=== PATIENT | male | born 1940 | race Caucasian/White ===

== ENCOUNTER 2017-05-27 20:15 | Inpatient (IN) | payer MEDICARE, OTHER ==
[~2017-05-27] VITALS: Ht 172.7 cm; Wt 110.7 kg
[2017-05-27] MEDS ORDERED: SOD CHLORIDE 0.9% 1,000 ML IV STA (20:21)
[2017-05-27] MEDS ORDERED: CEFTRIAXONE 1 GM/50 ML (PMX) 50 ML IVPB STA (20:21)
[2017-05-27] MEDS ORDERED: KETOROLAC 15 MG INJ IV STA (20:21)
[2017-05-27 20:52] LABS: ABNORMAL IP MESSAGE 1; BASOPHIL # 0.1 10^3/ul (0.0-0.1); BASOPHILS % 0.3 % (0.0-2.0); EOSINOPHILS % 0.1 % (0.0-7.0); HEMATOCRIT 41.5 % (42.0-52.0); HEMOGLOBIN 13.9 g/dl (14.0-18.0); LYMPHOCYTES % 10.1 % (15.0-51.0); MEAN CORPUSCULAR HEMOGLOBIN 29.7 pg (29.0-33.0); MEAN CORPUSCULAR HGB CONC 33.5 g/dl (32.0-37.0); MEAN CORPUSCULAR VOLUME 88.7 fl (82.0-101.0); MEAN PLATELET VOLUME 11.2 fl (7.4-10.4); MONOCYTE # 2.2 10^3/ul (0.3-0.9); MONOCYTES % 11.2 % (0.0-11.0); NEUTROPHILS % 77.6 % (39.0-77.0); PLATELET COUNT 191 10^3/UL (140-415); POSITIVE DIFF @See below; RED BLOOD COUNT 4.68 10^6/ul (4.70-6.10); RED CELL DISTRIBUTION WIDTH 13.7 % (11.5-14.5); WHITE BLOOD COUNT 19.4 10^3/ul (4.8-10.8)
--- NOTE | 2017-05-27 21:09 | ERD ---
ER Documentation Chief Complaint Chief Complaint suprapubic pain/dysuria, hematuria, dx'd UTI @clinic yesterday, 1dose abx HPI This is a 76-year-old male with a PMH of HTN, DM, BPH, a recent diagnosis of urinary tract infection who is presenting with progressive worsening suprapubic pain, pain with urination, blood in his urine, urinary retention, fever, chills and generally feeling unwell. The patient was seen at his clinic yesterday and was diagnosed with urinary tract infection at that time. He has taken 1 dose of Keflex. The patient has had no headache or vision changes. The patient does not endorse neck or back pain. The patient denies lightheadedness or dizziness. The patient has had no chest pain or shortness of breath or trouble breathing. The patient denies nausea or vomiting. The patient denies changes to bowel movements. The patient has had no focal deficits. The patient has had no weakness or numbness or tingling to the face or extremities. ROS All systems reviewed and are negative except as per history of present illness. Medications Home Meds Reported Medications Dutasteride/Tamsulosin HCl (Dutasteride-Tamsulosin 0.5-0.4) 1 Each Cpmp.24hr, 1 EACH PO, CAP 05/28/17 Linaclotide (LINZESS) 290 Mcg Capsule, 290 MCG PO DAILY, #30 CAP 05/28/17 Ergocalciferol (Vitamin D2) (VITAMIN D2) 50,000 Unit Capsule, 75528 UNIT PO, CAP 05/28/17 Zolpidem Tartrate* (Zolpidem Tartrate*) 10 Mg Tablet, 10 MG PO QHS Y for INSOMNIA, #30 TAB 05/28/17 Alprazolam* (Alprazolam*) 1 Mg Tablet, 1 MG PO Q8H Y for ANXIETY, TAB 05/28/17 Lisinopril* (Lisinopril*) 10 Mg Tablet, 10 MG PO DAILY, #30 TAB 05/28/17 Hydrocodone/Acetaminophen ([place] 10-325 Tablet) 1 Each Tablet, 1 EACH PO, TAB 05/28/17 Dutasteride* (Avodart*) 0.5 Mg Capsule, 0.5 MG PO DAILY, CAP 05/28/17 Sitagliptin* (Januvia*) 100 Mg Tablet, 100 MG PO DAILY, #30 TAB 05/28/17 Allergies Allergies: Coded Allergies: No Known Allergy (Unverified , 05/27/17) PMhx/Soc Hx Neurological Disorder: No Hx Respiratory Disorders: No Hx Cardiac Disorders: Yes (HTN) Hx Psychiatric Problems: No Hx Miscellaneous Medical Probl: Yes (DM, BPH) Hx Alcohol Use: No Hx Substance Use: No Hx Tobacco Use: No Smoking Status: Unknown if ever smoked FmHx Family History: diabetes, No coronary disease Physical Exam Vitals Vital Signs Date Time Temp Pulse Resp B/P Pulse Ox O2 Delivery O2 Flow Rate FiO2 05/27/17 23:00 85 27 128/71 97 Room Air 05/27/17 22:00 86 24 132/67 97 Room Air 05/27/17 21:00 89 26 139/72 97 Room Air 05/27/17 20:20 103.1 99 21 162/86 93 Physical Exam Const: No apparent distress, well-developed, well-nourished Head: Normocephalic, Atraumatic Eyes: Normal Conjunctiva. Extraocular movements intact. Pupils equal, round and reactive to light ENT: Normal External Ears, Nose and Mouth. Neck: Full range of motion. No meningismus. Resp: Clear to auscultation bilaterally, No wheezes, rales or rhonchi Cardio: Regular rate and rhythm. No murmurs, rubs or gallops Abd: Suprapubic fullness and tenderness. Soft, non distended. Normal bowel sounds : Blood at the urethral meatus Skin: No petechiae or rashes. Warm to touch Back: No midline tenderness. No CVA tenderness Ext: No cyanosis, or edema Neur: Awake and alert, oriented 4. Cranial nerves intact. No facial droop. Normal strength, sensation and coordination. Psych: Normal Mood and Affect Result Diagram: 05/28/17 0805/28/17 08 Results 24 hrs Laboratory Tests Test 05/27/17 20:35 05/27/17 22:05 05/27/17 22:48 White Blood Count 19.410^3/ul Red Blood Count 4.6810^6/ul Hemoglobin 13.9g/dl Hematocrit 41.5% Mean Corpuscular Volume 88.7fl Mean Corpuscular Hemoglobin 29.7pg Mean Corpuscular Hemoglobin Concent 33.5g/dl Red Cell Distribution Width 13.7% Platelet Count 77020^3/UL Mean Platelet Volume 11.2fl Neutrophils % 77.6% Lymphocytes % 10.1% Monocytes % 11.2% Eosinophils % 0.1% Basophils % 0.3% Nucleated Red Blood Cells % 0.0/100WBC Neutrophils # 15.010^3/ul Lymphocytes # 2.010^3/ul Monocytes # 2.210^3/ul Eosinophils # 0.010^3/ul Basophils # 0.110^3/ul Nucleated Red Blood Cells # 0.010^3/ul Sodium Level 138mmol/L Potassium Level 4.0mmol/L Chloride Level 97mmol/L Carbon Dioxide Level 26mmol/L Anion Gap 19 Blood Urea Nitrogen 14mg/dl Creatinine 0.90mg/dl Glucose Level 170mg/dl Calcium Level 9.2mg/dl Total Bilirubin 0.5mg/dl Direct Bilirubin 0.00mg/dl Indirect Bilirubin 0.5mg/dl Aspartate Amino Transf (AST/SGOT) 20IU/L Alanine Aminotransferase (ALT/SGPT) 54IU/L Alkaline Phosphatase 49IU/L Total Protein 7.8g/dl Albumin 4.4g/dl Globulin 3.40g/dl Albumin/Globulin Ratio 1.29 Lactic Acid Level 1.8mmol/L Urine Color RED Urine Clarity CLOUDY Urine pH 6.0 Urine Specific [place] 1.024 Urine Ketones NEGATIVEmg/dL Urine Nitrite NEGATIVEmg/dL Urine Bilirubin NEGATIVEmg/dL Urine Urobilinogen 1+mg/dL Urine Leukocyte Esterase 3+Mariah/ul Urine Microscopic RBC > 182/HPF Urine Microscopic WBC > 182/HPF Urine Hemoglobin 3+mg/dL Urine Glucose NEGATIVEmg/dL Urine Total Protein 2+mg/dl Current Medications Medications (Trade) Dose Ordered Sig/Robert Route PRN Reason Start Time Stop Time Status Last Admin Dose Admin Sodium Chloride 1,000 ml @ 1,000 mls/hr Q1H STAT IV 05/27/17 20:21 05/27/17 21:20 DC 05/27/17 21:20 Ceftriaxone Sodium (Rocephin) 50 ml @ 100 mls/hr ONCE STAT IVPB 05/27/17 20:21 05/27/17 20:50 DC 05/27/17 21:08 Ketorolac Tromethamine 15 mg 15 mg ONCE STAT IV 05/27/17 20:21 05/27/17 20:24 DC 05/27/17 21:16 Sodium Chloride (NS) 1,000 ml @ 1,000 mls/hr Q1H ONCE IV 05/27/17 23:30 05/28/17 00:29 DC Acetaminophen (Tylenol Tab) 650 mg ONCE ONCE PO 05/27/17 23:30 05/27/17 23:31 DC Procedures/MDM MDM The patient's presentation warrants further investigation. The patient is febrile with an elevated heart rate. I am concerned of sepsis related to UTI. The patient does not look systemically ill. The patient does not have clinical findings of an alternative source. He does have a history of BPH and seems to have issues with urinary obstruction and retention at this time. A Salcedo catheter will be placed. Blood work and urinalysis will be obtained. The patient will get IV fluids and Rocephin for treatment of a urinary infection. LABS The patient's blood work was obtained and reviewed. The patient's CBC shows leukocytosis and left shift. The patient is febrile and does appear systemically ill. I do suspect a systemic infection. The patient is mildly anemic, but this does not require emergent treatment. The patient's platelet count is unremarkable. The patient's CMP shows no signs of metabolic or electrolyte emergencies. The patient has unremarkable renal and hepatic function testing. The patient's urinalysis shows findings consistent with acute cystitis with hematuria. TREATMENT/DISPOSITION The patient has a leukocytosis with a confirmed urinary tract infection. In conjunction with the elevated heart rate and temperature, I do suspect sepsis. At this time, I feel that the patient requires admission for further evaluation and management. The patient will be admitted to [place] in accordance with the patient's insurance. The patient was accepted by Dr. Hines at 23:32PM on May 27, 2017. The patient's blood pressure was elevated at greater than 120/80 while in the emergency department. The patient was otherwise stable with no evidence of hypertensive urgency or emergency or end organ damage. This may be further monitored in the hospital. SEPSIS NOTE Admit MDM: Patient's infectious symptoms have not stabilized and the patient is at risk of rapid decompensation. The patient will be admitted for careful hydration, antibiotic therapy, and infectious source control. Sepsis criteria: Infectious source: UTI End organ damage indicated by: None Sepsis Management: Time of recognition of sepsis: Upon arrival Within 3 hours of recognition: Blood cultures x 2 before broad-spectrum antibiotics: Yes 30 ml/kg NS bolus: The patient was given 2 L of normal saline in the emergency department. He does not have findings consistent with severe sepsis. I do not want to fluid overload him. Initial lactate: 1.8 CRITICAL CARE Critical care time: 35 minutes excluding all billable procedures Emergent fluid management while maintaining close respiratory support. Provision of immediate and broad-spectrum antibiotic therapy. Simultaneous assessment for possible sources in order to direct targeted therapy. Consideration for invasive and chemical support to prevent cardiopulmonary collapse. Disclaimer: Inadvertent spelling and grammatical errors are likely due to EHR/ dictation software use and do not reflect on the overall quality of patient care. Note that the electronic time recorded on this note does not necessarily reflect the actual time of the patient encounter. Departure Diagnosis: Primary Impression: Sepsis Sepsis type: sepsis due to unspecified organism Qualified Code: A41.9 - Sepsis, due to unspecified organism Additional Impressions: UTI (urinary tract infection) Urinary tract infection type: acute cystitis Hematuria presence: with hematuria Qualified Code: N30.01 - Acute cystitis with hematuria Leukocytosis Leukocytosis type: lymphocytosis Qualified Code: D72.820 - Lymphocytosis Fever Fever type: unspecified Qualified Code: R50.9 - Fever, unspecified fever cause Urinary retention WILMER DAVIS MD May 27, 2017 21:09
[2017-05-27 21:14] LABS: ALBUMIN 4.4 g/dl (3.3-4.9); ALBUMIN/GLOBULIN RATIO 1.29; BILIRUBIN,INDIRECT 0.5 mg/dl (0-1.1); BILIRUBIN,TOTAL 0.5 mg/dl (0.2-1.3); CALCIUM 9.2 mg/dl (8.4-10.2); CREATININE 0.9 mg/dl (0.61-1.24); TOTAL PROTEIN 7.8 g/dl (6.1-8.1)
[2017-05-27 23:21] LABS: ADD UMIC YES; UR ASCORBIC ACID NEGATIVE (NEGATIVE); UR BILIRUBIN (Dip) NEGATIVE (NEGATIVE); UR BLOOD (Dip) 3+ mg/dL (NEGATIVE); UR CLARITY CLOUDY (CLEAR); UR COLOR RED (YELLOW); UR GLUCOSE (Dip) NEGATIVE (NEGATIVE); UR KETONES (Dip) NEGATIVE (NEGATIVE); UR LEUKOCYTE ESTERASE (Dip) 3+ Leu/ul (NEGATIVE); UR NITRITE (Dip) NEGATIVE (NEGATIVE); UR RBC > 182 /HPF (0-5); UR SPECIFIC GRAVITY (Dip) 1.024 (1.003-1.030); UR TOTAL PROTEIN (Dip) 2+ mg/dl (NEGATIVE); UR UROBILINOGEN (Dip) 1+ mg/dL (NEGATIVE)
[2017-05-27] MEDS ORDERED: ACETAMINOPHEN 325 MG TAB PO ONE (23:30)
[2017-05-27] MEDS ORDERED: SOD CHLORIDE 0.9% 1,000 ML IV ONE (23:30)
[2017-05-28] VITALS (11 sets, daily range): BP systolic 95–149; BP diastolic 55–94; PULSE 76–89; RESP 17–20; Ht 172.7 cm; Wt 110.7 kg
[2017-05-28] MEDS ORDERED: ONDANSETRON 4 MG INJ IV PRN
[2017-05-28] MEDS ORDERED: ACETAMINOPHEN 325 MG TAB PO PRN
[2017-05-28] MEDS ORDERED: ALPR1TAB7 PO (00:29)
[2017-05-28] MEDS ORDERED: SITA100T8 PO (00:29)
[2017-05-28] MEDS ORDERED: HYDR-902 PO (00:29)
[2017-05-28] MEDS ORDERED: DUTA0.5C PO (00:29)
[2017-05-28] MEDS ORDERED: LISI10TA2 PO (00:29)
[2017-05-28] MEDS ORDERED: ZOLP10TA5 PO (00:43)
[2017-05-28] MEDS ORDERED: LINA290C PO (00:59)
[2017-05-28] MEDS ORDERED: ERGO500037 PO (00:59)
[2017-05-28] MEDS ORDERED: HALOPERIDOL 5 MG INJ IM ONE (01:00)
[2017-05-28] MEDS ORDERED: DUTA1CPM4 PO (01:00)
[2017-05-28] MEDS ORDERED: ZOLPIDEM 5 MG TAB PO PRN (04:30)
[2017-05-28 08:38] LABS: ABNORMAL IP MESSAGE 1; BASOPHIL # 0.1 10^3/ul (0.0-0.1); BASOPHILS % 0.3 % (0.0-2.0); HEMATOCRIT 38.5 % (42.0-52.0); HEMOGLOBIN 13.1 g/dl (14.0-18.0); LYMPHOCYTES # 2.2 10^3/ul (0.8-2.9); LYMPHOCYTES % 11.4 % (15.0-51.0); MEAN CORPUSCULAR HEMOGLOBIN 30.3 pg (29.0-33.0); MEAN CORPUSCULAR VOLUME 88.9 fl (82.0-101.0); MEAN PLATELET VOLUME 11.7 fl (7.4-10.4); MONOCYTE # 1.9 10^3/ul (0.3-0.9); MONOCYTES % 9.6 % (0.0-11.0); NEUTROPHIL # 15.2 10^3/ul (1.6-7.5); NEUTROPHILS % 77.8 % (39.0-77.0); PLATELET COUNT 170 10^3/UL (140-415); POSITIVE DIFF @See below; RED BLOOD COUNT 4.33 10^6/ul (4.70-6.10); RED CELL DISTRIBUTION WIDTH 13.9 % (11.5-14.5); WHITE BLOOD COUNT 19.5 10^3/ul (4.8-10.8)
--- NOTE | 2017-05-28 08:46 | HP ---
Date/Time of Note Date/Time of Note DATE: 05/28/17 TIME: 08:41 Assessment/Plan VTE Prophylaxis VTE Prophylaxis Intervention: SCD's Lines/Catheters IV [facility]from [facility] Saline Lock Urinary Cath still in place: Yes Reason Cath still needed: other (indicate) (Confusion, dementia) Assessment/Plan Assessment/Plan [facility] 76-year-old man diagnosed yesterday as an outpatient with a urinary tract infection, who developed worsening lower abdominal pain, urethritis symptoms, fever, and hematuria. He has apparent pyelonephritis, with sustained elevated WBC (19.5k/ul this morning), fever, and urinary symptoms of infection. * Place under telemetry observation * Continue IV Rocephin * Urine culture pending * Adequate IV and oral hydration * Renal ultrasound * Accuchecks qAC and qHS * HgbA1c with next labs * Full-code * Hold off on heparin for DVT prevention, in light of the hematuria, but we will use SCDs. * Famotidine PO for GI protection * Disposition. Wilfredo Hines MD PhD [phone] HPI/ROS Admit Date/Time Admit Date/Time May 27, 2017 at 23:33 Hx of Present Illness Mr. Cox is a 76-year-old man diagnosed yesterday as an outpatient with a urinary tract infection, who developed worsening lower abdominal pain, urethritis symptoms, fever, and hematuria. He had difficulty relating his story this morning, and there were no family members present. ROS No headache, dyspnea, chest pain or nausea. But also no appetite. 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 They are [place]ians from [place] who lived in [place] and [facility] before moving here in the 70s. Smoking Status: Current every day smoker Exam/Review of Systems Vital Signs Vitals Vital Signs Date Time Temp Pulse Resp B/P Pulse Ox O2 Delivery O2 Flow Rate FiO2 05/28/17 08:35 89 05/28/17 08:21 Nasal Cannula 2.0 05/28/17 07:27 102.8 18 139/75 94 Exam Constitutional: alert, oriented, other (Serious, moderately diaphoretic, and moderately uncomfortable-appearing with any movement) Psych: anxiety, no complaints Head: atraumatic, normocephalic Eyes: EOMI, PERRL, nl conjunctiva, nl sclera ENMT: nl external ears & nose, nl lips & teeth Neck: non-tender, supple, No jvd, No masses, No nuchal rigidity, No thyromegaly Respiratory: clear to auscultation, normal air movement, No congested cough, No crackles/rales, No diminished breath sounds, No intercostal retraction, No labored breathing, No respirations, No tactile fremitus, No wheezing Cardiovascular: nl pulses, regular rate and rhythm, No bruits, No diastolic murmur, No edema, No gallop, No irregular rhythm, No jugular venous distention (JVD), No murmurs/extra sounds, No rub, No systolic murmur Gastrointestinal: nl liver, spleen, non-tender, soft, No ascites, No bowel sounds, No distended, No firm, No hepatomegaly, No mass , No rebound or guarding, No splenomegaly Genitourinary - Male: No CVA tenderness Musculoskeletal: nl extremities to inspection, No joint tenderness, No muscle tone, No muscle weakness, No other, No range of motion, No spine non-tender, No swelling Extremities: normal pulses Labs Result Diagram: 05/28/1780405/27/172034 Medications Medications Current Medications Acetaminophen 650 mg 650 mg Q6H PRN PO PAIN AND OR ELEVATED TEMP; Start at 04:30 Ceftriaxone Sodium (Rocephin) 50 ml @ 100 mls/hr Q24H IVPB ; Start 05/28/17 at 21:00 Alprazolam (Xanax) 1 mg Q8H PRN PO ANXIETY; Start 05/28/17 at 04:30 Dutasteride (Avodart) 0.5 mg DAILY PO ; Start 05/28/17 at 09:00 Lisinopril (Zestril) 10 mg DAILY PO ; Start 05/28/17 at 09:00 Zolpidem Tartrate (Ambien) 10 mg QHS PRN PO INSOMNIA; Start 05/28/17 at 04:30 Miscellaneous Information 290 mcg DAILY PO ; Start 05/28/17 at 09:00; Status UNV Linagliptin (Tradjenta) 5 mg DAILY PO ; Start 05/28/17 at 09:00 AVI HINES M.D. May 28, 2017 08:46
[2017-05-28] MEDS ORDERED: NON-FORMULARY/PATIENT OWN MED (Linaclotide (Linzess) 290 MCG) PO SCH (09:00)
[2017-05-28 09:13] LABS: CALCIUM 8.9 mg/dl (8.4-10.2); CREATININE 0.84 mg/dl (0.61-1.24); POTASSIUM 3.7 mmol/L (3.5-5.1)
[2017-05-28] MEDS: LINAGLIPTIN 5 MG TABLET PO SCH (09:18)
[2017-05-28] MEDS: LISINOPRIL 10 MG TAB PO SCH (09:19)
[2017-05-28] MEDS: DUTASTERIDE 0.5 MG CAP PO SCH (09:19)
[2017-05-28] MEDS: [UNRECOGNIZED DRUG - REMARK] XX SCH ×2 (15:00→23:00)
[2017-05-28] MEDS: CEFTRIAXONE 1 GM/50 ML (PMX) 50 ML IVPB SCH (20:40)
[2017-05-29] VITALS (12 sets, daily range): BP systolic 115–174; BP diastolic 65–83; PULSE 60–92; RESP 16–20
[2017-05-29] MEDS: ACETAMINOPHEN 325 MG TAB PO PRN ×2 (00:20→20:32)
[2017-05-29] MEDS: [UNRECOGNIZED DRUG - REMARK] XX SCH ×3 (06:52→23:00)
[2017-05-29] MEDS: LISINOPRIL 10 MG TAB PO SCH (08:35)
[2017-05-29] MEDS: DUTASTERIDE 0.5 MG CAP PO SCH (08:35)
[2017-05-29] MEDS: LINAGLIPTIN 5 MG TABLET PO SCH (08:36)
[2017-05-29] MEDS: ALPRAZOLAM 1 MG TAB PO PRN ×2 (11:38→21:53)
[2017-05-29 17:05] LABS: BASOPHIL # 0.1 10^3/ul (0.0-0.1); BASOPHILS % 0.3 % (0.0-2.0); EOSINOPHILS % 0.1 % (0.0-7.0); HEMATOCRIT 40.9 % (42.0-52.0); HEMOGLOBIN 13.7 g/dl (14.0-18.0); LYMPHOCYTES # 2.3 10^3/ul (0.8-2.9); LYMPHOCYTES % 11.6 % (15.0-51.0); MEAN CORPUSCULAR HGB CONC 33.5 g/dl (32.0-37.0); MEAN CORPUSCULAR VOLUME 89.7 fl (82.0-101.0); MEAN PLATELET VOLUME 11.4 fl (7.4-10.4); MONOCYTE # 1.3 10^3/ul (0.3-0.9); MONOCYTES % 6.6 % (0.0-11.0); NEUTROPHIL # 15.6 10^3/ul (1.6-7.5); NEUTROPHILS % 80.2 % (39.0-77.0); PLATELET COUNT 165 10^3/UL (140-415); RED BLOOD COUNT 4.56 10^6/ul (4.70-6.10); RED CELL DISTRIBUTION WIDTH 13.9 % (11.5-14.5); WHITE BLOOD COUNT 19.4 10^3/ul (4.8-10.8)
--- NOTE | 2017-05-29 17:17 | PN ---
Date/Time of Note Date/Time of Note DATE: 05/29/17 TIME: 17:11 Assessment/Plan VTE Prophylaxis VTE Prophylaxis Intervention: SCD's Lines/Catheters [facility] Saline Lock Urinary Cath still in place: No Assessment/Plan Assessment/Plan [facility] 1. 76-year-old man who presented yesterday with lower abdominal pain, urethritis symptoms, fever, and hematuria. Diagnosed with pyelonephritis, with sustained elevated WBC elevation (19k/ul again today). No fever now. He appears much better, but was quite confused today with disorientation to person , place and time. Urine culture shows Gram-negative rods. * Salcedo out * Switch admit to Med-Surg inpatient * Continue IV Rocephin * Urine culture pending * Adequate oral hydration * Renal ultrasound performed, but still pending. 2. Type 2 diabetes, on oral agents only, but blood sugars are mildly elevated * Start tonight on Lantus 12u SQ * Accuchecks qAC and qHS * HgbA1c with next labs 3. Hypertension * Continue lisinopril 4. Confusion. Unclear what his baseline may be, but he was convinced tonight that he was on his boat fishing. * Minimize disruption at night, including early-hour vital signs. 5. Disposition * Full-code * Hold off on heparin for DVT prevention, in light of the hematuria, but we will use SCDs. * Famotidine PO for GI protection * Disposition to be discussed with family. Wilfredo Hines MD PhD [phone] Subjective 24 Hr Interval Summary Free Text/Dictation Confused, good eye contact, complaining of minor discomfort in the suprapubic region. But no dyspnea, chest discomfort, headache, or nausea. Exam/Review of Systems Vital Signs Vitals Vital Signs Date Time Temp Pulse Resp B/P Pulse Ox O2 Delivery O2 Flow Rate FiO2 05/29/17 17:06 2.0 05/29/17 16:02 78 05/29/17 16:00 98.8 17 166/72 94 05/29/17 15:56 Nasal Cannula Intake and Output 05/28/17 05/28/17 05/29/17 15:00 23:00 07:00 Intake Total 50 ml 600 ml 800 ml Output Total 1500 ml 900 ml Balance 50 ml -900 ml -100 ml Exam Constitutional: alert, but disoriented. Thought he was on a boat, and couldn' t tell me his name. Not diaphoretic, and overall generally comfortable- appearing. Psych: Mild anxiety, no complaints Eyes: Normal pupils and conjunctiva, nl scleral icterus, moist oral mucosa. Neck: non-tender, supple, no jvd Respiratory: clear to auscultation, normal air movement. Cardiovascular: nl pulses, regular rhythm, normal rate, no murmur. Gastrointestinal: nl liver, spleen, non-tender, soft, normal bowel sounds. Genitourinary - Male: No CVA tenderness Musculoskeletal: nl extremities to inspection, no joint tenderness. No swelling. Symmetric pulses Results Result Diagram: 05/29/17 1645 05/28/17 0805 Results 24 hrs Laboratory Tests Test 05/28/17 17:19 05/29/17 08:08 05/29/17 12:26 05/29/17 16:45 Bedside Glucose 206 219 259 H White Blood Count 19.4 H Red Blood Count 4.56 L Hemoglobin 13.7 L Hematocrit 40.9 L Mean Corpuscular Volume 89.7 Mean Corpuscular Hemoglobin 30.0 Mean Corpuscular Hemoglobin Concent 33.5 Red Cell Distribution Width 13.9 Platelet Count 165 Mean Platelet Volume 11.4 H Neutrophils % 80.2 H Lymphocytes % 11.6 L Monocytes % 6.6 Eosinophils % 0.1 Basophils % 0.3 Nucleated Red Blood Cells % 0.0 Neutrophils # 15.6 H Lymphocytes # 2.3 Monocytes # 1.3 H Eosinophils # 0.0 Basophils # 0.1 Nucleated Red Blood Cells # 0.0 Medications Medications Current Medications Acetaminophen 650 mg 650 mg Q6H PRN PO PAIN AND OR ELEVATED TEMP Last administered on 05/29/17 00:20; Admin Dose 650 MG; Start 05/28/17 at 04:30 Ceftriaxone Sodium (Rocephin) 50 ml @ 100 mls/hr Q24H IVPB Last administered on 05/28/17 20:40; Admin Dose 100 MLS/HR; Start 05/28/17 at 21:00 Alprazolam (Xanax) 1 mg Q8H PRN PO ANXIETY Last administered on 05/29/17 11: 38; Admin Dose 1 MG; Start 05/28/17 at 04:30 Dutasteride (Avodart) 0.5 mg DAILY PO Last administered on 05/29/17 08:35; Admin Dose 0.5 MG; Start 05/28/17 at 09:00 Lisinopril (Zestril) 10 mg DAILY PO Last administered on 05/29/17 08:35; Admin Dose 10 MG; Start 05/28/17 at 09:00 Zolpidem Tartrate (Ambien) 10 mg QHS PRN PO INSOMNIA; Start 05/28/17 at 04:30 Miscellaneous Information 290 mcg DAILY PO ; Start 05/28/17 at 09:00; Status UNV Linagliptin (Tradjenta) 5 mg DAILY PO Last administered on 05/29/17 08:36; Admin Dose 5 MG; Start 05/28/17 at 09:00 Miscellaneous Information (*Order Clarification Bulletin) LINZESS... NON FORMULARY...PLEASE CONSIDER AN OR... Q8H XX ; Start 05/28/17 at 15:00 AVI HINES M.D. May 29, 2017 17:17
[2017-05-29 17:26] LABS: CALCIUM 9.8 mg/dl (8.4-10.2); CREATININE 0.72 mg/dl (0.61-1.24); POTASSIUM 3.9 mmol/L (3.5-5.1)
[2017-05-29] MEDS: CEFTRIAXONE 1 GM/50 ML (PMX) 50 ML IVPB SCH (21:26)
[2017-05-29] MEDS: INSULIN GLARGINE [LANtus] 3 ML PEN SC SCH (23:30)
[2017-05-29] MEDS ORDERED: GLUCOSE GEL 15 GRAM TUBE BUCCAL PRN (23:30)
[2017-05-29] MEDS ORDERED: GLUCAGON 1 MG INJ IM PRN (23:30)
[2017-05-29] MEDS ORDERED: DEXTROSE 50% 50 ML SYRINGE IV PRN ×2 (23:30)
[2017-05-29] MEDS ORDERED: GLUCOSE GEL 15 GRAM TUBE PO PRN ×2 (23:30)
[2017-05-30] VITALS (8 sets, daily range): BP systolic 107–150; BP diastolic 59–86; PULSE 47–72; RESP 21–22
[2017-05-30] MEDS: INSULIN GLARGINE [LANtus] 3 ML PEN SC SCH (00:05)
[2017-05-30] MEDS: ACETAMINOPHEN 325 MG TAB PO PRN (05:39)
[2017-05-30 06:54] LABS: BASOPHIL # 0.1 10^3/ul (0.0-0.1); BASOPHILS % 0.4 % (0.0-2.0); EOSINOPHILS # 0.1 10^3/ul (0.0-0.5); EOSINOPHILS % 0.9 % (0.0-7.0); HEMOGLOBIN 12.5 g/dl (14.0-18.0); LYMPHOCYTES # 1.9 10^3/ul (0.8-2.9); LYMPHOCYTES % 13.6 % (15.0-51.0); MEAN CORPUSCULAR HGB CONC 33.8 g/dl (32.0-37.0); MEAN CORPUSCULAR VOLUME 88.9 fl (82.0-101.0); MEAN PLATELET VOLUME 11.4 fl (7.4-10.4); MONOCYTE # 1.4 10^3/ul (0.3-0.9); MONOCYTES % 10.1 % (0.0-11.0); NEUTROPHIL # 10.5 10^3/ul (1.6-7.5); NEUTROPHILS % 74.2 % (39.0-77.0); PLATELET COUNT 192 10^3/UL (140-415); RED BLOOD COUNT 4.16 10^6/ul (4.70-6.10); RED CELL DISTRIBUTION WIDTH 13.8 % (11.5-14.5); WHITE BLOOD COUNT 14.1 10^3/ul (4.8-10.8)
[2017-05-30] MEDS: [UNRECOGNIZED DRUG - REMARK] XX SCH (07:00)
[2017-05-30] MEDS ORDERED: ACCU-CHEK XX SCH (07:25)
[2017-05-30 08:06] LABS: ALBUMIN 3.6 g/dl (3.3-4.9); ALBUMIN/GLOBULIN RATIO 0.87; BILIRUBIN,INDIRECT 0.4 mg/dl (0-1.1); BILIRUBIN,TOTAL 0.4 mg/dl (0.2-1.3); CALCIUM 9.5 mg/dl (8.4-10.2); CREATININE 0.73 mg/dl (0.61-1.24); POTASSIUM 3.6 mmol/L (3.5-5.1); TOTAL PROTEIN 7.7 g/dl (6.1-8.1)
[2017-05-30] MEDS: LINAGLIPTIN 5 MG TABLET PO SCH (08:08)
[2017-05-30] MEDS: DUTASTERIDE 0.5 MG CAP PO SCH (08:08)
[2017-05-30] MEDS: LISINOPRIL 10 MG TAB PO SCH (08:09)
[2017-05-30 08:13] LABS: CHOL/HDL RATIO 8.8 RATIO
[2017-05-30 08:21] LABS: THYROID STIMULATING HORMONE 1.99 MIU/L (0.465-4.680)
[2017-05-30] MEDS: ALPRAZOLAM 1 MG TAB PO PRN (10:17)
--- NOTE | 2017-05-30 12:08 | PN ---
Date/Time of Note Date/Time of Note DATE: 05/30/17 TIME: 12:01 Assessment/Plan VTE Prophylaxis VTE Prophylaxis Intervention: ambulation, SCD's Lines/Catheters IV C[facility]ter Type [facility]from [facility] Urinary Cath still in place: No Assessment/Plan Assessment/Plan 76-year-old man: 1. Cystitis, urine culture positive for E. coli, pansensitive, did receive Rocephin, will be switched to Levaquin 750 p.o. daily for 5 more days. Patient remains afebrile, mental status has been on and off confused, however better today, discharge planning home with home health. Renal ultrasound performed, report still pending. Discussed current clinical status and treatment plan with son, he is very insistent on having the patient home and agrees with plan of care, patient will be discharged with home health RN check. 2. Type 2 diabetes, on oral agents only, but blood sugars are mildly elevated. A1c 6.6 resume home regimen. Follow-up with primary care physician as an outpatient for further titration. While inpatient, agree with sliding scale insulin added 3. Hypertension: Continue lisinopril 4. Confusion: Patient likely in a little bit of nicotine withdrawal, discussed with son, otherwise within baseline and alert and oriented this morning. Very insistent to go home. Will proceed with discharge Prophylaxis: SCDs for DVT prophylaxis, Pepcid for GI prophylaxis Disposition: Discharge home on oral antibiotics and home health RN check.. Subjective 24 Hr Interval Summary Free Text/Dictation WBC trending down, urine culture back with E. coli sensitive to fluoroquinolone , blood cultures are negative. Patient feels better however was extremely combative this morning, he did receive Xanax is calmer currently. He does have some confusion and possibly dementia at baseline. Clinically he is much more stable and potentially able to discharge today with home health and on Levaquin Exam/Review of Systems Vital Signs Vitals Vital Signs Date Time Temp Pulse Resp B/P Pulse Ox O2 Delivery O2 Flow Rate FiO2 05/30/17 08:13 97.9 73 21 150/79 99 05/30/17 08:00 Nasal Cannula 05/30/17 00:00 2.0 Intake and Output 05/29/17 05/29/17 05/30/17 15:00 23:00 07:00 Intake Total 700 ml 600 ml Output Total 600 ml Balance 100 ml 600 ml Exam Constitutional: alert, obese, oriented (x2), well developed Respiratory: clear to auscultation, normal air movement Cardiovascular: nl pulses, regular rate and rhythm Gastrointestinal: non-tender, soft Musculoskeletal: nl extremities to inspection, nl gait and stance Extremities: normal pulses, other Neurological: [employer] II-XII intact, confused, nl speech, nl strength Results Result Diagram: 05/30/17 0621 05/30/17 0621 Results 24 hrs Laboratory Tests Test 05/29/17 12:26 05/29/17 16:45 05/29/17 17:53 05/29/17 23:35 Bedside Glucose 259 H 178 226 H White Blood Count 19.4 H Red Blood Count 4.56 L Hemoglobin 13.7 L Hematocrit 40.9 L Mean Corpuscular Volume 89.7 Mean Corpuscular Hemoglobin 30.0 Mean Corpuscular Hemoglobin Concent 33.5 Red Cell Distribution Width 13.9 Platelet Count 165 Mean Platelet Volume 11.4 H Neutrophils % 80.2 H Lymphocytes % 11.6 L Monocytes % 6.6 Eosinophils % 0.1 Basophils % 0.3 Nucleated Red Blood Cells % 0.0 Neutrophils # 15.6 H Lymphocytes # 2.3 Monocytes # 1.3 H Eosinophils # 0.0 Basophils # 0.1 Nucleated Red Blood Cells # 0.0 Sodium Level 142 Potassium Level 3.9 Chloride Level 103 Carbon Dioxide Level 25 Anion Gap 18 H Blood Urea Nitrogen 9 Creatinine 0.72 Glucose Level 165 Calcium Level 9.8 Test 05/30/17 06:21 05/30/17 08:06 White Blood Count 14.1 #H Red Blood Count 4.16 L Hemoglobin 12.5 L Hematocrit 37.0 L Mean Corpuscular Volume 88.9 Mean Corpuscular Hemoglobin 30.0 Mean Corpuscular Hemoglobin Concent 33.8 Red Cell Distribution Width 13.8 Platelet Count 192 Mean Platelet Volume 11.4 H Neutrophils % 74.2 Lymphocytes % 13.6 L Monocytes % 10.1 Eosinophils % 0.9 Basophils % 0.4 Nucleated Red Blood Cells % 0.0 Neutrophils # 10.5 H Lymphocytes # 1.9 Monocytes # 1.4 H Eosinophils # 0.1 Basophils # 0.1 Nucleated Red Blood Cells # 0.0 Sodium Level 143 Potassium Level 3.6 Chloride Level 106 Carbon Dioxide Level 27 Anion Gap 14 Blood Urea Nitrogen 11 Creatinine 0.73 Glucose Level 163 Hemoglobin A1c 6.6 H Calcium Level 9.5 Total Bilirubin 0.4 Direct Bilirubin 0.00 Indirect Bilirubin 0.4 Aspartate Amino Transf (AST/SGOT) 16 Alanine Aminotransferase (ALT/SGPT) 32 Alkaline Phosphatase 68 Total Protein 7.7 Albumin 3.6 Globulin 4.10 H Albumin/Globulin Ratio 0.87 Triglycerides Level 311 H Cholesterol Level 124 LDL Cholesterol, Calculated 48 HDL Cholesterol 14 L Cholesterol/HDL Ratio 8.8 Thyroid Stimulating Hormone (TSH) 1.990 Bedside Glucose 167 Medications Medications Current Medications Acetaminophen (Tylenol Tab) 650 mg Q6H PRN PO PAIN AND OR ELEVATED TEMP Last administered on 05/30/17 05:39; Admin Dose 650 MG; Start 05/28/17 at 04:30 Alprazolam (Xanax) 1 mg Q8H PRN PO ANXIETY Last administered on 05/30/17 10: 17; Admin Dose 1 MG; Start 05/28/17 at 04:30 Dutasteride (Avodart) 0.5 mg DAILY PO Last administered on 05/30/17 08:08; Admin Dose 0.5 MG; Start 05/28/17 at 09:00 Lisinopril (Zestril) 10 mg DAILY PO Last administered on 05/30/17 08:09; Admin Dose 10 MG; Start 05/28/17 at 09:00 Zolpidem Tartrate (Ambien) 10 mg QHS PRN PO INSOMNIA; Start 05/28/17 at 04:30 Miscellaneous Information 290 mcg DAILY PO ; Start 05/28/17 at 09:00; Status UNV Linagliptin (Tradjenta) 5 mg DAILY PO Last administered on 05/30/17 08:08; Admin Dose 5 MG; Start 05/28/17 at 09:00 Miscellaneous Information (*Order Clarification Bulletin) LINZESS... NON FORMULARY...PLEASE CONSIDER AN OR... Q8H XX ; Start 05/28/17 at 15:00 Insulin Glargine (Lantus) 12 unit DAILY@20 SC Last administered on 05/30/17 00:05; Admin Dose 12 UNIT; Start 05/29/17 at 23:30 Miscellaneous Information 1 ea NOTE XX ; Start 05/29/17 at 23:30 Glucose (Glutose) 15 gm Q15M PRN PO DECREASED GLUCOSE; Start 05/29/17 at 23:30 Glucose (Glutose) 22.5 gm Q15M PRN PO DECREASED GLUCOSE; Start 05/29/17 at 23: 30 Dextrose (D50w Syringe) 25 ml Q15M PRN IV DECREASED GLUCOSE; Start 05/29/17 at 23:30 Dextrose (D50w Syringe) 50 ml Q15M PRN IV DECREASED GLUCOSE; Start 05/29/17 at 23:30 Glucagon (Glucagen) 1 mg Q15M PRN IM DECREASED GLUCOSE; Start 05/29/17 at 23: 30 Glucose (Glutose) 15 gm Q15M PRN BUCCAL DECREASED GLUCOSE; Start 05/29/17 at 23:30 Levofloxacin (Levaquin) 750 mg DAILY@06 PO ; Start 05/31/17 at 06:00; Status UNV TRI CHICAS May 30, 2017 12:08 TRI CHICAS May 30, 2017 12:08
--- NOTE | 2017-05-30 12:37 | PDOCDIS ---
Discharge Instructions CONDITION Patient Condition: Stable HOME CARE INSTRUCTIONS: Diet Instructions: Special Diet: Diabetic diet ACTIVITY: Activity Restrictions: Slowly Increase Activity FOLLOW UP/APPOINTMENTS Follow-up Plan Follow-up with primary care physician within 1 week TRI CHICAS May 30, 2017 12:37
[2017-05-30] MEDS ORDERED: LEVO750T25 PO ×2 (12:39→12:42)
[2017-05-30] MEDS ORDERED: LEVOFLOXACIN 750 MG TABLET PO SCH (13:00)
[2017-05-30] MEDS ORDERED: INSULIN ASPART [NOVOLOG] 3 ML PEN SC SCH (17:55)
[2017-05-31] MEDS ORDERED: ACCU-CHEK XX SCH (02:00)
[2017-05-31] MEDS ORDERED: LEVOFLOXACIN 750 MG TABLET PO SCH (06:00)
== END 2017-05-30 14:50 | disposition home or self-care (01) | DRG 690 ==
LOC: E/R 20:15 → TEL 23:33
PROVIDERS: ADMIT Internal Medicine; ATTEND Internal Medicine
DX: N30.01 Acute cystitis with hematuria (principal); E11.9 Type 2 diabetes mellitus without complications; I10 Essential (primary) hypertension; B96.20 Unspecified Escherichia coli [E. coli] as the cause of diseases classified elsewhere; F17.200 Nicotine dependence, unspecified, uncomplicated; N40.0 Benign prostatic hyperplasia without lower urinary tract symptoms
CPT/HCPCS: 36415; 76775; 80048; 80053; 80061; 81001; 82962; 83036; 83605; 84443; 85025; 87040; 87081; 87086; 96372; 96374; 96375; J0696; J1630; J1815; J1885; J7030